=== PATIENT | male | born 1985 | race Caucasian/White ===

== ENCOUNTER 2016-09-05 20:42 | Emergency (ER) | payer OTHER ==
[~2016-09-05 20:42] MED LIST: LEADER MELATONIN5 MG PO
[2016-09-05 20:56] VITALS: BP 156/90
== END 2016-09-05 22:12 | disposition left against medical advice (07) ==
LOC: ED 20:42
DX: Z53.21 Procedure and treatment not carried out due to patient leaving prior to being seen by health care provider (principal); M79.89 Other specified soft tissue disorders

== ENCOUNTER 2017-11-13 05:44 | Emergency (ER) | payer SELFPAY ==
[~2017-11-13] VITALS: Ht 175.3 cm; Wt 63.5 kg
[2017-11-13 05:53] VITALS: Ht 175.3 cm; Wt 63.5 kg
== END 2017-11-13 11:18 | disposition expired ==
LOC: ED → EDBD 05:44 → ED 11:18
DX: I46.9 Cardiac arrest, cause unspecified (principal); S01.81XA Laceration without foreign body of other part of head, initial encounter; X58.XXXA Exposure to other specified factors, initial encounter; Y93.89 Activity, other specified; Y92.89 Other specified places as the place of occurrence of the external cause; Y99.8 Other external cause status
CPT/HCPCS: J7030